=== PATIENT | male | born 1960 | race Caucasian/White ===

== ENCOUNTER 2016-11-30 10:20 | Day surgery (SDC) | payer MEDICAID ==
[~2016-11-30 10:20] MED LIST: PROPOFOL INJ 200 MG/20 ML VIAL IV ONE
[2016-11-30] MEDS ORDERED: NA PHOS,M-B/NA PHOS,DI-BA (ADULT) 133 ML ENEMA PR PRN (10:53)
[2016-11-30] MEDS: NA PHOS,M-B/NA PHOS,DI-BA (ADULT) 133 ML ENEMA PR ONE ×2 (10:54→11:40)
[2016-11-30] MEDS ORDERED: NA PHOS,M-B/NA PHOS,DI-BA (ADULT) 133 ML ENEMA PR ONE (11:33)
[2016-11-30] MEDS ORDERED: PROPOFOL INJ 200 MG/20 ML VIAL IV ONE (12:56)
[2016-11-30 13:43] VITALS: BP 120/73
--- NOTE | 2016-11-30 14:26 | Operative Report ---
Operative Report DATE OF SURGERY: 11/30/16 Operative Report: The risks, benefits and alternatives of the procedure including risks of bleeding, perforation requiring surgery are explained to the patient in detail and informed consent is obtained. Patient is brought back to the endoscopy suite. Patient is placed in a left lateral decubital position. Timeout is called. Propofol medication is administered. A rectal examination was done which did not reveal any masses, tears or fissures. An Olympus video scope was inserted into the patient's rectum. Keeping the lumen in site at all times the scope was then gradually advanced all the way to the cecum. The cecum as identified by the ileocecal valve. Prep is better. Irrigation had to be done. Several liters of stool had to be suctioned out. The scope was then sequentially pulled back out via the various segments of the colon including the ascending colon, hepatic flexure, transverse colon, splenic flexure, descending colon and finally into the rectosigmoid portions of the colon. Retroflexion maneuvers performed. PREOPERATIVE DIAGNOSIS: Patient complaining of diarrhea. He does have chronic use of long-term narcotic medications. Rule out colitis. POSTOPERATIVE DIAGNOSIS: Likely had paradoxical diarrhea. Biopsies obtained in the right side of the colon to rule out for collagenous, microcytic, lymphocytic colitis. OPERATION: Colonoscopy with biopsy SURGEON: SABI LOW ANESTHESIA: LMAC TISSUE REMOVED OR ALTERED: Right-sided colon biopsies obtained COMPLICATIONS: None. ESTIMATED BLOOD LOSS: none. INTRAOPERATIVE FINDINGS: Prep is not adequate. Large amounts of fluid had to be used to irrigate the colon. No obstruction is noted. Patient does have chronic oncotic pain use. Likely having paradoxical diarrhea. No other masses , AVMs, diverticulosis noted. Internal hemorrhoids are noted. PROCEDURE: Patient tolerated the procedure well. No immediate postprocedure complications are noted. Patient is discharged in good condition. Discharge date 11/30/2016. Discharge diet: Regular. Discharge activity: Regular. Patient does have a 2-3 week follow-up to discuss findings. We'll await on biopsies. Patient is instructed to call the office or proceed to the emergency room should there be any further problems or questions.
== END 2016-11-30 13:45 | disposition home or self-care (01) ==
LOC: END 10:20
PROVIDERS: ATTEND Internal Medicine Gastroenterology
PROC: 0DBF8ZX Excision of Right Large Intestine, Via Natural or Artificial Opening Endoscopic, Diagnostic (ICD-10-PCS; principal; 2016-11-30 12:30)
DX: K92.1 Melena (principal); R10.84 Generalized abdominal pain; R19.4 Change in bowel habit; K21.9 Gastro-esophageal reflux disease without esophagitis; I10 Essential (primary) hypertension; G62.9 Polyneuropathy, unspecified; B19.20 Unspecified viral hepatitis C without hepatic coma; Z79.51 Long term (current) use of inhaled steroids; Z86.14 Personal history of Methicillin resistant Staphylococcus aureus infection; Z79.899 Other long term (current) drug therapy
CPT/HCPCS: 45380; 88305 ×2; J3490; J2704; 810

== ENCOUNTER → 2018-01-19 | Outpatient (CLI) | payer MEDICARE, MEDICAID ==
--- NOTE | 2018-01-19 17:20 | RADIOLOGY REPORT (SQ) ---
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 NUMBER OF VIEWS: Five views including obliques. TECHNIQUE: AP, lateral, oblique, and sacral radiographic images acquired of the lumbar spine. LIMITATIONS: None. FINDINGS: MINERALIZATION: Normal. SEGMENTATION: Normal. No transitional anatomy. ALIGNMENT: Normal. VERTEBRAE: Maintained height. No fracture or worrisome bone lesion. DISCS: Multilevel disc space narrowing with osteophytes. POSTERIOR ELEMENTS: Pedicles and facets are intact. Previous laminectomy. Facet arthropathy is prese nt. HARDWARE: None in the spine. PARASPINAL SOFT TISSUES: Normal. PELVIS: Intact as visualized. No fractures or worrisome bone lesions. SI joints intact. OTHER: No other significant finding. IMPRESSION: MULTILEVEL DEGENERATIVE CHANGES. SURGICAL CHANGES. NO ACUTE FINDINGS. TECHNICAL DOCUMENTATION: JOB ID: [id number] [employer]- All Rights Reserved Reading location - IP/workstation name: [email or web address]
--- NOTE | 2018-01-19 17:20 | RADIOLOGY REPORT (SQ) ---
EXAM DESCRIPTION: T SPINE AP/LAT COMPLETED DATE/TIME: 01/19/2018 5:10 pm REASON FOR STUDY: PAIN IN THORACIC SPINE M51.37 OTHER INTERVERTEBRAL DISC DEGENERATION, LUMBOSACRAL R M54.6 PAIN IN THORACIC SPINE COMPARISON: None. NUMBER OF VIEWS: Two views. TECHNIQUE: AP and lateral radiographic images acquired of the thoracic spine. LIMITATIONS: None. FINDINGS: MINERALIZATION: Normal. ALIGNMENT: Normal. No scoliosis. VERTEBRAE: No fracture or bone lesion. Maintained height, normal segmentation. DISCS: No significant loss of height or significant narrowing. No large osteophytes. HARDWARE: None in the spine. MEDIASTINUM AND SOFT TISSUES: Normal heart size and aortic contour. No soft tissue abnormality. VISUALIZED LUNG TRAN: Clear. OTHER: No other significant finding. IMPRESSION: NO SIGNIFICANT RADIOGRAPHIC FINDING IN THE THORACIC SPINE. TECHNICAL DOCUMENTATION: JOB ID: [id number] [facility]- All Rights Reserved Reading location - IP/workstation name: [email or web address]
== END ==
LOC: OD 16:18
PROVIDERS: ATTEND Family Medicine
DX: M51.37 Other intervertebral disc degeneration, lumbosacral region (principal); M54.6 Pain in thoracic spine
CPT/HCPCS: 72070; 72110

== ENCOUNTER 2018-08-10 08:08 | Day surgery (SDC) | payer MEDICARE, MEDICAID ==
[2018-08-10] MEDS ORDERED: PROPOFOL INJ 200 MG/20 ML VIAL IV ONE (11:44)
[2018-08-10] MEDS ORDERED: LIDOCAINE 2% INJ-PF (20 MG/ML) 10 ML AMPUL ONE (11:52)
[2018-08-10] MEDS ORDERED: DIPHENHYDRAMINE HCL 50 MG/ML VIAL IV PRN (12:15)
[2018-08-10] MEDS ORDERED: PROMETHAZINE HCL INJ 25 MG/1 ML VIAL IV PRN (12:15)
[2018-08-10] MEDS ORDERED: ONDANSETRON HCL INJ/PF 4 MG/2 ML SDV IV PRN (12:15)
--- NOTE | 2018-08-10 12:28 | Operative Report ---
Operative Report DATE OF SURGERY: 08/10/18 Operative Report: The risks, benefits and alternatives of the procedure including the risks of bleeding, perforation requiring surgery are explained to the patient in detail and informed consent is obtained. Patient is brought back to the operating room and placed in the left, lateral decubital position. An Olympus videoscope was introduced into the patient's mouth. The esophagus is identified and ablated and insufflated. The scope was then gradually advanced all which was the distal esophagus. There does appear to be a previous old scar suggestive of a previous Lisbet-Younger tear. The scope is then advanced through the stomach mild gastritis is noted. First and second portions of the duodenum were normal. Following this the patient structures done around and colonoscopy attempted. When the scope was introduced into the patient's rectum there was solid stool. No good visualization was able to be obtained. I aborted the procedure at risk of perforation. Patient will need to be reprepped and rescheduled for colonoscopy. PREOPERATIVE DIAGNOSIS: Blood in stool, diarrhea, change of bowel habits. Hematemesis POSTOPERATIVE DIAGNOSIS: Gastritis status post biopsy. Flexible sigmoidoscopy diagnostic, incomplete colonoscopy due to the prep. OPERATION: Diagnostic flex sig. EGD with biopsy SURGEON: SABI LOW ANESTHESIA: LMAC TISSUE REMOVED OR ALTERED: As noted above. COMPLICATIONS: None. ESTIMATED BLOOD LOSS: None. INTRAOPERATIVE FINDINGS: As noted above. PROCEDURE: Patient tolerated the procedure well. No immediate postprocedure complications are noted. Patient to be discharged in good condition. Discharge date 08/10/2018. Discharge diet: Regular. Discharge activity: Regular. Not able to complete the colonoscopy due to inadequate prep. Proceeding with the procedure with the put the patient at high risk of potential perforation and therefore it was aborted for patient safety. He will need to go ahead and reprep We will go ahead and reschedule him for another location Wait on gastric biopsies He appears to have had at least a Lisbet-Younger tear in the past This is almost healed No blood noted in the last 30 cm of the colon.
[2018-08-10 14:31] VITALS: BP 122/81
== END 2018-08-10 14:00 | disposition home or self-care (01) ==
LOC: OROUT 08:08
PROVIDERS: ATTEND Internal Medicine Gastroenterology
DX: K92.0 Hematemesis (principal); K62.5 Hemorrhage of anus and rectum; K29.50 Unspecified chronic gastritis without bleeding; I10 Essential (primary) hypertension; F17.210 Nicotine dependence, cigarettes, uncomplicated; R06.02 Shortness of breath; I05.0 Rheumatic mitral stenosis; Z88.8 Allergy status to other drugs, medicaments and biological substances
CPT/HCPCS: 43239; 45378; 36415; 84132; 88342 ×2; 88305 ×2; J2704; J3490; 813; G0121